=== PATIENT | male | born 1975 | race Caucasian/White ===

== ENCOUNTER 2019-03-08 12:31 | Emergency (ER) | payer OTHER ==
--- NOTE | 2019-03-08 14:05 | ED Physician Documentation ---
PD HPI SKIN - Stated complaint Stated Complaint: BUMP ON CHIN - Chief complaint Chief Complaint: Wound - History obtained from History obtained from: Patient - History of Present Illness Timing - onset: How many days ago (few) Timing - duration: Days (few) Timing - details: Gradual onset Location: Face (left submental area) Quality / character: Painful, Discolored, Raised, Swelling. No: Draining Associated symptoms: No: Fever, Myalgias, N/V/D Similar symptoms before: Has not had sx before Recently seen: Not recently seen Review of Systems Constitutional: denies: Fever, Chills, Myalgias Throat: denies: Oral lesions / sores Skin: reports: Lesions (abscess underside chin left side) PD PAST MEDICAL HISTORY - Past Medical History Cardiovascular: None Respiratory: None Neuro: None Endocrine/Autoimmune: None - Present Medications Home Medications: Ambulatory Orders Medication Instructions Recorded Confirmed Mupirocin 1 applic TP TID #15 g 03/08/19 Sulfamethox/Trimeth 800/160 1 each PO BID #14 tablet 03/08/19 [Bactrim Ds 800/160] - Allergies Allergies/Adverse Reactions: Allergies Allergy/AdvReac Type Severity Reaction Status Date / Time No Known Drug Allergies Allergy Verified 03/08/19 12:45 PD ED PE NORMAL - Vitals Vital signs reviewed: Yes - General General: Alert and oriented X 3, No acute distress, Well developed/nourished - HEENT HEENT: Pharynx benign - Neck Neck: Supple, no meningeal sign, Other (left submental area with skin area whiteness and pointing but no drainage. There is induration below that with firmness c/w abscess/infection. U/S showed fluid collection as well as surrounding edema. ) - Cardiac Cardiac: RRR, No murmur - Respiratory Respiratory: Clear bilaterally Results - Vitals Vitals: Vital Signs - 24 hr 03/08/19 03/08/19 12:43 14:51 Temperature 36.9 C 36.8 C Heart Rate 73 72 Respiratory 15 17 Rate Blood Pressure 173/90 H 171/98 H O2 Saturation 99 99 Oxygen O2 Source Room air Procedures - Abscess I&D (location) left submental area Preparation: Lidocaine 1%, With epi Incision: Incised with scalpel, Purulent drainage, Irrigated. No: Packed, Culture obtained Other: Pt tolerated well, Dressing applied, Antibiotic prescribed PD MEDICAL DECISION MAKING - ED course Complexity details: considered differential, d/w patient Departure - Departure Disposition: 01 Home, Self Care Clinical Impression: Facial abscess Condition: Stable Record reviewed to determine appropriate education?: Yes Instructions: ED Abscess IandD Follow-Up: [facility] [Provider Group] Prescriptions: Mupirocin 1 applic TP TID #15 g Sulfamethox/Trimeth 800/160 [Bactrim Ds 800/160] 1 each PO BID #14 tablet Comments: Warm moist towels to the area periodically to improve blood flow and help promote drainage. Keep the area bandaged clean. You can use some mupirocin antibiotic ointment topically to the area after a day but keep platelets open for draining the first day. Bactrim antibiotic twice daily for a week for the infection. Tylenol or ibuprofen as needed for pains. Recheck if this has not improved significantly over couple of days though the firmness of the tissue may take a week or so to soften up. Discharge Date/Time: 03/08/19 15:02
[2019-03-08] MEDS ORDERED: SULFAMETH/TRIMETH DS 800/160 MG TABLET PO STA (14:25)
[2019-03-08] MEDS ORDERED: IBUPROFEN 800 MG TABLET PO STA (14:25)
[2019-03-08 19:13] VITALS: BP 171/98
== END 2019-03-08 15:02 | disposition home or self-care (01) ==
LOC: ED 12:31
DX: L02.01 Cutaneous abscess of face (principal)
CPT/HCPCS: 10060; 99282; 99283; A9270

== ENCOUNTER 2023-09-12 14:45 | Emergency (ER) | payer OTHER ==
[2023-09-12 15:03] VITALS: BP 153/87; O2SAT 96
[2023-09-12] MEDS ORDERED: TETANUS/DIPHTHERIA/PERTUSSIS 0.5 ML SYRINGE IM ONE (15:13)
--- NOTE | 2023-09-12 15:13 | ED Physician Documentation ---
PD HPI UPPER EXT INJURY - Stated complaint Stated Complaint: RT FINGER LAC - Chief complaint Chief Complaint: Trauma Ext - History obtained from History obtained from: Patient - Additonal information Additional information: Healthy 47-year-old gentleman works for [employer]. He got his right ring finger caught under a manhole cover while working just prior to arrival. Last tetanus shot is unknown. PD PAST MEDICAL HISTORY - Past Medical History Cardiovascular: None Respiratory: None Neuro: None Endocrine/Autoimmune: None GI: Diverticulitis - Past Surgical History Past Surgical History: No - Present Medications Home Medications: Ambulatory Orders Medication Instructions Recorded Confirmed No Known Home Medications 09/12/23 09/12/23 - Allergies Allergies/Adverse Reactions: Allergies Allergy/AdvReac Type Severity Reaction Status Date / Time No Known Drug Allergies Allergy Verified 03/08/19 12:45 - Social History Does the pt smoke?: No Smoking Status: Never smoker PD ED PE NORMAL - Vitals Vital signs reviewed: Yes - General General: Alert and oriented X 3, No acute distress - Extremities Extremities: Other (On the ulnar side of the right fourth finger there is a 1 cm laceration medial to the nail that does not involve the nail. No distal neurovascular compromise. No tenderness.) Results - Vitals Vitals: Vital Signs - 24 hr 09/12/23 14:59 Temperature 36.3 C L Heart Rate 70 Respiratory 16 Rate Blood Pressure 153/87 H O2 Saturation 96 Oxygen O2 Source Room air Procedures - Laceration (location) Right fourth finger Length in cm: 1 Wound type: Curved, Into subcut fat Neurovascular status: Sensory intact, Motor intact Tendon involvement: Tendon intact Anesthesia: Lidocaine 1% (Digital block) Wound preparation: Irrigated copiously NS Skin layer closure: Nylon, Interrupted, Size #-0 - enter number (5-0), Sutures - enter # (5) Other: Tetanus booster given Departure - Departure Disposition: 01 Home, Self Care Clinical Impression: Finger laceration Qualifiers: Encounter type: initial encounter Finger: ring finger Damage to nail status: without damage Foreign body presence: without foreign body Laterality: right Qualified Code(s): S61.214A - Laceration without foreign body of right ring finger without damage to nail, initial encounter Instructions: ED Laceration Hand Comments: Come back for any signs of infection which would include: Redness, swelling, drainage, increased pain, or fevers. You can wash it soap and water. Keep it covered and moist with bacitracin ointment which is available over the counter; avoid neosporin. Follow-up with your physician in about 14 days for suture removal. Forms: PCP List, Activity restrictions
== END 2023-09-12 15:39 | disposition home or self-care (01) ==
LOC: ED 14:45
DX: S61.214A Laceration without foreign body of right ring finger without damage to nail, initial encounter (principal); W45.8XXA Other foreign body or object entering through skin, initial encounter; Y99.0 Civilian activity done for income or pay
CPT/HCPCS: 1040M; 12001; 90471; 90715; 99283